=== PATIENT | female | born 1975 | race Caucasian/White ===

== ENCOUNTER 2023-09-30 15:06 | Emergency (ER) | payer OTHER, BC ==
[~2023-09-30] VITALS: Ht 162.6 cm; Wt 62.1 kg
[2023-09-30 15:06] VITALS: BP_SYST 110; PULSE 60; RESP 18; TEMP 97.8; O2SAT 97
[2023-09-30] MEDS ORDERED: ACETAMINOPHEN 500 MG TABLET PO ONE (16:00)
[2023-09-30] MEDS ORDERED: IBUP-1969 PO (17:17)
[2023-09-30] MEDS ORDERED: ACET-2634 PO (17:17)
[2023-09-30] MEDS ORDERED: LIDO1ADH22 TP (17:17)
[2023-09-30] MEDS ORDERED: CYCL10TA24 PO (17:26)
[2023-09-30 17:47] VITALS: BP_SYST 110; PULSE 60; RESP 18; TEMP 97.8; O2SAT 97
== END 2023-09-30 17:52 | disposition home or self-care (01) ==
LOC: SED 15:06
DX: S29.012A Strain of muscle and tendon of back wall of thorax, initial encounter (principal); S16.1XXA Strain of muscle, fascia and tendon at neck level, initial encounter; S09.90XA Unspecified injury of head, initial encounter; Z88.0 Allergy status to penicillin; Z88.5 Allergy status to narcotic agent; Z79.899 Other long term (current) drug therapy; V89.2XXA Person injured in unspecified motor-vehicle accident, traffic, initial encounter; Y93.89 Activity, other specified; Y92.89 Other specified places as the place of occurrence of the external cause; Y99.8 Other external cause status
CPT/HCPCS: 70450-TC; 72072-TC; 72110; 72125-TC; 76376; 81025; 99284